=== PATIENT | male | born 1970 | race African-American/Black ===

== ENCOUNTER 2018-05-06 07:04 | Day surgery (SDC) | payer OTHER ==
[~2018-05-06] VITALS: Ht 182.9 cm; Wt 94.3 kg
[2018-05-06] MEDS ORDERED: CEFAZOLIN SODIUM 1 GM/D5W PM 50 ML IV SCH (07:55)
[2018-05-06] MEDS ORDERED: ceFAZolin 1,000 MG VIAL ONE (09:49)
[2018-05-06] MEDS ORDERED: BUPIVACAINE-MPF 0.5% 30 ML VIAL INJ ONE (09:50)
[2018-05-06] MEDS ORDERED: PROPOFOL 200 MG/20 ML VIAL IV ONE (10:16)
[2018-05-06] MEDS ORDERED: ePHEDrine 50 MG/ML VIAL IV ONE (10:16)
[2018-05-06] MEDS ORDERED: LIDOCAINE 2% 100 MG/5 ML SYR IVP ONE (10:16)
[2018-05-06] MEDS ORDERED: SEVOFLURANE 250 ML BTL INH ONE (10:16)
[2018-05-06] MEDS ORDERED: fentaNYL 0.05 MG/ML VIAL ONE (10:30)
[2018-05-06] MEDS ORDERED: MIDAZOLAM 2 MG/2 ML VIAL ONE (10:30)
[2018-05-06] MEDS ORDERED: ONDANSETRON 4 MG/2 ML VIAL IVP PRN (10:55)
[2018-05-06] MEDS ORDERED: MORPHINE SULFATE 2 MG/ML SYR IVP PRN (12:05)
[2018-05-06] MEDS ORDERED: HYDROmorphone 1 MG/ML AMP IVP PRN (12:05)
[2018-05-06] MEDS ORDERED: ACETAMINOPHEN 325 MG TAB PO PRN (12:05)
[2018-05-06] MEDS ORDERED: MORPHINE SULFATE 4 MG/ML SYR IV PRN (12:05)
[2018-05-06] MEDS ORDERED: HYDROcodone/APAP 5/325 MG 1 TAB TAB PO PRN (12:05)
[2018-05-06] MEDS ORDERED: ONDANSETRON 4 MG/2 ML VIAL IV PRN (12:05)
[2018-05-06] MEDS: HYDROmorphone 1 MG/ML AMP IVP PRN ×4 (12:10→12:40)
[2018-05-06] MEDS ORDERED: HYDROmorphone PFS 2 MG/ML SYR ONE (12:17)
[2018-05-06] MEDS ORDERED: ONDANSETRON 4 MG/2 ML VIAL ONE (12:17)
== END 2018-05-06 13:50 | disposition home or self-care (01) ==
LOC: MDS 07:04 → MMU 07:05 → MDS 13:50
PROVIDERS: ATTEND Surgery
DX: K40.90 Unilateral inguinal hernia, without obstruction or gangrene, not specified as recurrent (principal); F17.210 Nicotine dependence, cigarettes, uncomplicated; Z98.890 Other specified postprocedural states
CPT/HCPCS: 49505; 71045; 93005; C1781; J0690; J1170; J2001; J2250; J2405; J2704; J3010; J3490; J7120